=== PATIENT | male | born 1965 | race Hispanic/Latino ===

== ENCOUNTER 2016-08-01 12:36 | Observation (INO) ==
--- NOTE | 2016-08-01 13:14 | PROVIDER DOCUMENTATION ---
HPI-Abdominal Pain/GI Problem - General Source: patient - History of Present Illness-ABD Nature of Presenting Problems: 51 year old male presents to the ER with complaint of abdominal pain x 5 hours. Pt had gastric bypass 4 years ago and a cholecystectomy. Pt states he is nauseous and tried to vomit but nothing came up. Pt also states he is constipated. Has has multiple episodes like this in the past year but this time it is worse. Abdominal Pain Onset Location: reports: periumbilical Pain Radiation: reports: periumbilical Quality of Pain: reports: sharp, stabbing Onset/Duration: reports: this morning Timing: reports: getting worse Associated Symptoms: reports: constipation, nausea Dark Stools Present?: reports: none noticed Rectal Bleeding: reports: none <Madison Webster - Last Filed: 08/01/16 16:14> <Jose A Corbin - Last Filed: 08/01/16 16:51> - General Chief Complaint: Abdominal Pain Stated Complaint: ABD PAIN Time Seen by Provider: 08/01/16 13:01 Allergies/Adverse Reactions: Patient Allergies Allergy/AdvReac Type Severity Reaction Status Date / Time No Known Allergies Allergy Verified 05/14/14 16:23 Home Medications: Home Medication List Medication Instructions Recorded Confirmed Last Taken Type Allopurinol 300 mg PO DAILY 05/14/14 05/15/14 05/14/14 08:00 History Calcium Carbonate [Calcium] 600 mg PO DAILY 05/14/14 05/15/14 05/14/14 08:00 History Multivitamin [Men's Multi-Vitamin] 1 each PO DAILY 05/14/14 05/15/14 05/15/14 07 :00 History Review of Systems - Adult - REVIEW OF SYSTEMS - ADULT Constitutional: denies: chills, fever Eyes: reports: no symptoms reported Ears, Nose, Mouth & Throat: reports: no symptoms reported Cardiovascular: reports: no symptoms reported Respiratory: reports: no symptoms reported Gastrointestinal: reports: abdominal pain, constipation, nausea Genitourinary: reports: no symptoms reported Musculoskeletal: reports: no symptoms reported Integumentary: reports: no symptoms reported Neurological: reports: no symptoms reported Psychiatric: reports: no symptoms reported Endocrine: reports: no symptoms reported Hematologic/Lymphatic: reports: no symptoms reported Allergic/Immunologic: reports: no symptoms reported All Other Systems: Reviewed and Negative <Madison Webster - Last Filed: 08/01/16 16:14> Past History - Adult - PAST MEDICAL HISTORY-ADULT Review of Records: reports: Nursing Assessment Review, Medications Reviewed - PRIOR SURGERIES/PROCEDURES Surgical/Procedure History: reports: cholecystectomy, gastric bypass - IMMUNIZATION STATUS Childhood Immunizations: See Nurse Assessment Flu Vaccine: See Nurse Assessment <Madison Webster - Last Filed: 08/01/16 16:14> Physical Exam-General - PHYSICAL EXAM-ADULT Initial Vital Signs Reviewed: Yes - CONSTITUTIONAL General Appearance: alert, mild distress - EYES Eyes: PERRL/EOMI, pink conjunctivae - HEAD, EARS, NOSE, MOUTH & THROAT HENMT: normocephalic/atraumatic, moist mucous membranes - NECK Neck: supple, normal inspection - RESPIRATORY Respiratory: lungs clear, normal breath sounds - CARDIOVASCULAR Cardiovascular: normal peripheral pulses, regular rate, rhythm - GASTROINTESTINAL (ABDOMEN) Abdominal Exam: soft, tenderness - MUSCULOSKELETAL Back Exam: no CVA tenderness, no vertebral tenderness Extremity: normal gait, normal inspection - SKIN Integumentary: normal color, warm/dry - NEUROLOGIC Neurologic: grossly normal, no motor/sensory deficits - PSYCHIATRIC Psych/Mental Status: normal mood/affect, normal thought content, normal thought process, oriented x 3 <Madison Webster - Last Filed: 08/01/16 16:14> Progress - CONSULTS/PCP/HOSPITALIST Notification #1 *Consult/PCP/Hospitalist*: Dr. Martinez Time Discussed: 16:15 Consult Disposition: Admit <Madison Webster - Last Filed: 08/01/16 16:14> Departure - Departure Time of Disposition Order: 16:15 Certified Medical Emergency: Emergent <Madison Webster - Last Filed: 08/01/16 16:14> - Departure Time of Disposition Order: 16:51 Certified Medical Emergency: Emergent <Jose A Corbin - Last Filed: 08/01/16 16:51> - Departure DIAGNOSIS: Abnormal LFTs Abdominal pain Qualifiers: Abdominal location: periumbilical Qualified Code(s): R10.33 - Periumbilical pain Disposition: ADMITTED INPATIENT 09 Condition: Stable Attestation - Scribe Verification/Attestation Scribe:: Madison Webster Acting as Scribe for:: Jose A Corbin Scribe documention review:: This chart was documented by a scribe and accurately reflects the service the provider performed and the decisions made by the provider. <Madison Webster - Last Filed: 08/01/16 16:14> Physician Attestation
[2016-08-01 14:00] LABS: MANUAL DIFF NEEDED? NO
[2016-08-01 14:07] LABS: BASO% 0.1 % (0.0-0.8); EOS# 0.01 X1000 (0.0-0.7); EOS% 0.1 % (0.0-10.0); HEMATOCRIT 42.4 % (42.0-52.0); HEMOGLOBIN 14.2 g/dL (14.0-18.0); IMM GRAN# 0.03 X1000 (0.0-0.04); IMM GRAN% 0.2 % (0.0-0.5); LYMPH# 0.39 X1000 (1.2-3.4); LYMPH% 2.7 % (20.5-51.1); MCH 27.6 PG (27-31); MCHC 33.5 g/dL (33-37); MCV 82.5 FL (81-99); MONO# 1.88 X1000 (0.11-0.59); MONO% 12.8 % (1.7-9.3); MPV 12.5 FL (7.4-10.4); NEUT% 84.1 % (42.2-75.2); PLT 149 X1000 (130-400); RBC 5.14 XMIL (4.7-6.1)
[2016-08-01 14:22] LABS: URINE CULTURE PL NEEDED? NO; URINE SOURCE CLEAN CATCH
[2016-08-01 14:41] LABS: BILIRUBIN URINE NEGATIVE (NEGATIVE); BLOOD URINE NEGATIVE (NEGATIVE); CLARITY SL. CLOUDY (CLEAR); COLOR AMBER; GLUCOSE URINE NEGATIVE (NEGATIVE); LEUKOCYTES URINE TRACE (NEGATIVE); NITRITE URINE NEGATIVE (NEGATIVE); PROTEIN URINE NEGATIVE (NEGATIVE); SP GRAVITY URINE 1.005
[2016-08-01 14:42] LABS: AGAP 10; ALKALINE PHOSPHATASE 149 U/L (32-122); AMYLASE 77 U/L (20-200); BUN 14 mg/dL (8-22); CALCIUM 9.2 mg/dL (8.8-10.2); CHLORIDE 101 mmol/L (98-107); COSMO 275; GOT 498 U/L (10-34); GPT 229 U/L (10-44); LIPASE 29 U/L (13-60); POTASSIUM 3.8 mmol/L (3.5-5.1); SODIUM 136 mmol/L (136-145); TCO2 25 mmol/L (25-35); TOTAL PROTEIN 6.8 g/dL (6.3-8.3)
[2016-08-01 14:43] LABS: URINE EPITHELIAL CELLS <10 /HPF (<10); URINE RBC <10 /HPF (<10); URINE WBC <10 /HPF (<10)
[2016-08-01 14:56] LABS: UROBILINOGEN URINE 3+(8 mg/dL)
[2016-08-01] MEDS ORDERED: NORCO-5 PO PRN (16:31)
[2016-08-01] MEDS: NS 1,000 ML IV SCH ×2 (17:01→21:50)
[2016-08-01] MEDS: LEVAQUIN 500 MG/D5W 100 ML IV SCH (17:05)
--- NOTE | 2016-08-01 17:28 | Diag Imaging Result Document ---
PROCEDURE NAME: FLAT/UPRIGHT ABD/1 VIEW CHEST - 08/01/2016 SUPINE AND UPRIGHT ABDOMEN WITH ONE-VIEW CHEST: FINDINGS: The bowel gas pattern appears nonspecific. There are some air fluid levels of the upper abdomen on the upright view. There is no free air identified. There are multiple surgical clips. There is lumbar spondylosis noted. Upright chest shows normal heart size. The lungs appear clear. No pleural effusion or pneumothorax seen. IMPRESSION: 1. Nonspecific bowel gas pattern. 2. No evidence of acute cardiopulmonary disease.
--- NOTE | 2016-08-01 17:31 | Diag Imaging Result Document ---
PROCEDURE NAME: ABDOMEN/PELVIS W/CONTRAST - 08/01/2016 CT ABDOMEN AND PELVIS WITH IV CONTRAST: FINDINGS: Exam performed with intravenous contrast. A dose reduction protocol was used. Compared with a without contrast renal stone search of 04/11/2014. The visualized lung bases appear clear. There are no acute abnormalities of the liver, spleen, adrenal glands, or pancreas identified. The gallbladder is surgically absent. The bilateral kidneys enhance homogeneously. There is no hydronephrosis. There are nonspecific small retroperitoneal lymph nodes. There are lumbar spine degenerative changes noted, particularly prominent at lower lumbar facets. There are postsurgical changes of gastric bypass. There is no evidence of bowel obstruction. There is no bowel-containing external hernia identified. There is no obvious internal hernia seen. The appendix is surgically absent. There is no substantial bowel wall thickening identified. There is mild uncomplicated colonic diverticulosis. There is no indication of diverticulitis. There is no free air, substantial free fluid, or abscess identified. IMPRESSION: 1. Postsurgical changes of gastric bypass. No bowel obstruction. No bowel- containing external or internal hernia identified. 2. Mild uncomplicated colonic diverticulosis. 3. No abscess. No free air. 4. Lumbar spine degenerative changes noted, particularly prominent at lower lumbar facets. [facility]
[2016-08-01] MEDS ORDERED: SODIUM CHLORIDE 0.9% INJ SCH (18:45)
[2016-08-01] MEDS ORDERED: ZOFRAN IV PRN (18:48)
[2016-08-01] MEDS ORDERED: PHENERGAN IV PRN (18:48)
[2016-08-01] MEDS ORDERED: SODIUM CHLORIDE 0.9% INJ PRN (18:48)
[2016-08-01] MEDS ORDERED: MORPHINE IV PRN (18:48)
--- NOTE | 2016-08-01 21:01 | HISTORY AND PHYSICAL ---
PRIMARY CARE PHYSICIAN: Dr. Adama Mora. CHIEF COMPLAINT: Epigastric pain. Nausea. HISTORY OF PRESENT ILLNESS: This is a 51-year-old male with a history of chronic constipation and prior ulcer with GI bleed. He presented to the emergency room complaining of epigastric pain. He states that this pain started this morning when he woke up. It was within about an hour of eating. She states that it was a burning sensation with burping. The pain did continue. It spread just under his ribcage to the right. He had accompanying nausea, he stated he felt like if he could vomit he would feel better. He reports this pain at intervals since having a gastric bypass surgery I guess around 6 years ago. He does report that within 2 or 3 days after having gastric bypass surgery he had a GI bleed. His doctor Dr. Chang did 1or 2 EGDs on him and it sounded like he had a bleeding at the anastomosis. He was treated for ulcers multiple times shortly after surgery. He has had no further bleeding nor treatment since. He has not followed up with GI since he was released by Dr. Chang. In the emergency room he was found to have a white count of 14.6 with elevated LFTs having total bilirubin of 2.1, AST 498, ALT 229 and alkaline phosphatase of 149. Amylase and lipase were normal. CT of the abdomen and pelvis with IV contrast revealed postsurgical changes of gastric bypass. No bowel obstruction. No hernia, mild uncomplicated colonic diverticulosis. No abscess or free air. He was given saline at 125 an hour and admitted for further evaluation and treatment. PAST MEDICAL HISTORY: Gastric bypass, bleeding ulcer shortly after bypass. PAST SURGICAL HISTORY: Gastric bypass, appendectomy, right knee surgery and cysto and stone extraction. SOCIAL HISTORY: He denies alcohol, tobacco, or illicit drug use. ALLERGIES: No known drug allergies. HOME MEDICATIONS: A list will be obtained. REVIEW OF SYSTEMS: A 14 point review of systems is discussed with patient with pertinent positives stated in HPI. He denies chest pain, palpitations, syncope, dizziness, PND, orthopnea, black or bloody vomitus, black or bloody stools, hematuria, dysuria, frequency, urgency. PHYSICAL EXAMINATION: GENERAL: This is a 51-year-old male who is sitting in the bed in no distress. VITAL SIGNS: Blood pressure is 121/71 with a heart rate of 82, respirations are 18, temperature is 98.3 degrees oral with room air saturation of 100%. HEENT: Normocephalic, atraumatic. Pupils equal, round, react to light. EOMs are intact. Mucous membranes are moist. NECK: Supple with trachea midline. CARDIOVASCULAR: Regular rate and rhythm, S1, S2 appreciated. PULMONARY: Breath sounds are clear. No increased work of breathing noted. GASTROINTESTINAL: He has epigastric to right upper quadrant tenderness with no distention and bowel sounds in all 4 quadrants. MUSCULOSKELETAL: Good range of motion of joints. EXTREMITIES: No clubbing, cyanosis, or edema. Calves nontender. Pulses are palpable x4. DIAGNOSTICS: As stated in the HPI. ASSESSMENT AND PLAN: 1. Epigastric pain. 2. Nausea. 3. Elevated liver function tests. 4. History of bleeding ulcer after gastric bypass. PLAN: He will be admitted to the hospital. At present he will remain on clear liquid diet. We will draw hepatitis profile. Will repeat labs in the morning. The patient denies any recent contacts, any sick contacts. He has not been out of the country. He has not been camping, drinking any pond or river water or eating any unusual foods over the last 4-6 weeks. Due to his symptoms and his prior GI bleed will start Protonix q.12 hours, give Carafate and we will reassess in the morning. As the patient does have a history of GI bleed we will hold off on any anticoagulation. Will use SCDs for DVT prophylaxis. Dictated by ARLETTE Almonte for Mario Martinez MD
[2016-08-01] MEDS: PROTONIX IV SCH (21:49)
[2016-08-01] MEDS: CARAFATE PO SCH (21:53)
[2016-08-02] MEDS: NS 1,000 ML IV SCH ×3 (00:41→17:30)
[2016-08-02] MEDS: PROTONIX IV SCH (06:27)
[2016-08-02 06:37] LABS: MANUAL DIFF NEEDED? NO
[2016-08-02 06:43] LABS: BASO% 0.2 % (0.0-0.8); EOS# 0.02 X1000 (0.0-0.7); EOS% 0.2 % (0.0-10.0); HEMATOCRIT 39.5 % (42.0-52.0); HEMOGLOBIN 13.1 g/dL (14.0-18.0); IMM GRAN# 0.01 X1000 (0.0-0.04); IMM GRAN% 0.1 % (0.0-0.5); LYMPH# 0.94 X1000 (1.2-3.4); LYMPH% 11.2 % (20.5-51.1); MCH 27.5 PG (27-31); MCHC 33.2 g/dL (33-37); MCV 82.8 FL (81-99); MONO% 14.4 % (1.7-9.3); MPV 12.4 FL (7.4-10.4); NEUT% 73.9 % (42.2-75.2); PLT 128 X1000 (130-400); RBC 4.77 XMIL (4.7-6.1)
[2016-08-02 07:23] LABS: AGAP 9; ALBUMIN 3.6 g/dL (3.5-5.0); ALKALINE PHOSPHATASE 139 U/L (32-122); BUN 9 mg/dL (8-22); CALCIUM 8.7 mg/dL (8.8-10.2); CHLORIDE 105 mmol/L (98-107); COSMO 276; GOT 232 U/L (10-34); GPT 222 U/L (10-44); POTASSIUM 4.2 mmol/L (3.5-5.1); SODIUM 139 mmol/L (136-145); TCO2 25 mmol/L (25-35)
[2016-08-02] MEDS: CARAFATE PO SCH ×2 (08:50→12:47)
[2016-08-02] MEDS ORDERED: ZYLOPRIM PO SCH (09:00)
[2016-08-02] MEDS ORDERED: MULTI-VITAMIN PO SCH (09:00)
[2016-08-02] MEDS ORDERED: CALTRATE 600 PO SCH (09:00)
[2016-08-02 17:07] VITALS: BP 125/64
[2016-08-02] MEDS: LEVAQUIN 500 MG/D5W 100 ML IV SCH (17:31)
--- NOTE | 2016-08-03 07:00 | DISCHARGE SUMMARY ---
ADMISSION DATE: 08/01/2016 DISCHARGE DATE: 08/02/2016 PRIMARY CARE PHYSICIAN: Dr. Adama Mora. DIAGNOSES: 1. Epigastric pain resolved. 2. Nausea resolved. 3. Elevated liver function tests. This is improving. 4. History of bleeding ulcer after gastric bypass with no GI follow up. DIAGNOSTIC: 1. 08/01/2016 abdominal x-ray reveals nonspecific bowel gas pattern with no evidence of acute cardiopulmonary disease. 2. 08/01/2016 CT of the abdomen and pelvis reveals postsurgical changes of gastric bypass. No bowel obstruction. No bowel containing external or internal hernia. Mild uncomplicated colonic diverticulosis with no diverticulitis. No abscess, no free air. HOSPITAL COURSE: Mr. Garcia presented to the hospital complaining of epigastric pain and nausea. Actually the pain woke him up. He stated that it started about an hour to an hour and half after eating. He described a burning sensation with burping. It did spread across his rib cage with nausea. He has had episodes like this over the last 6 years. It seems to be getting more frequent over the last year. Each time it is within an hour of swallowing food. He had no further chest pain. No nausea. He has tolerated food without any difficulty. LFTs are decreasing, being as stated above. He does have a history of GI bleed. This was after gastric bypass. Evidently, he required 2 maybe 3 EGDs and he is not sure of the treatment. As he is having difficulty, we will send him home on Protonix p.o. as well as Carafate in the setting of GI bleed after gastric bypass, as well as elevated LFTs. We will have him follow up with Gastroenterology, Dr. Basurto in the next 1-2 weeks. PHYSICAL EXAMINATION: Cardiovascular: Regular rate and rhythm, S1, S2 appreciated. Pulmonary: Breath sounds are clear. No increased work of breathing noted. Gastrointestinal: Soft and just a little epigastric tenderness. This is much better with bowel sounds in all 4 quadrants. Extremities: No clubbing, cyanosis, or edema. Pulses are palpable x4. Calves are nontender. DISCHARGE MEDICATIONS: 1. Multivitamin daily. 2. Calcium carbonate 600 daily. 3. Allopurinol 300 at bedtime. 4. Carafate 1 g before meals and at bedtime. 5. Protonix 40 mg p.o. daily. DISCHARGE ACTIVITY: As tolerated. DISCHARGE VITAL SIGNS: Blood pressure is 105/82, heart rate 61, respirations 16, temperature 98 degrees oral with room air saturations 100%. FOLLOWUP: 1. Dr. Basurto in 1-2 weeks. 2[address] His PCP Dr. Mora in 1-3 weeks. He is being discharged home in stable condition with family members. TIME SPENT: This is a greater than 30 minute discharge. Dictated by ARLETTE Almonte for Mario Martinez MD
== END 2016-08-02 17:35 | disposition home or self-care (01) ==
LOC: P.ED 12:36 → P.MEDSURG 12:37
PROVIDERS: ATTEND Family Medicine
DX: R10.13 Epigastric pain (principal); R11.0 Nausea; K59.09 Other constipation; Z98.84 Bariatric surgery status; R79.89 Other specified abnormal findings of blood chemistry; Z79.899 Other long term (current) drug therapy
CPT/HCPCS: 74022; 74177; 80053; 80074; 81001; 82150; 83690; 85025; 96365; C9113; J2270; J7030; Q9967; S0164